=== PATIENT | female | born 1985 | race Caucasian/White ===

== ENCOUNTER 2025-01-10 06:31 | Day surgery (SDC) | payer MEDICAID ==
[2025-01-07 11:52] LABS: Hematocrit 38.4 % (36.0-46.0); Hemoglobin 12.8 g/dL (12.2-16.2); Mean Corpuscular Hemoglobin 28.8 pg (28.0-32.0); Mean Corpuscular Volume 86.2 fL (80.0-100.0); Nucleated Red Blood Cells % 0.0 %
[2025-01-07 12:03] LABS: INR 1.02 (0.9-1.15); Partial Thromboplastin Time 29.0 SEC (24.5-34.5); Prothrombin Time 10.8 sec (9.3-11.8)
[2025-01-07 12:41] LABS: Alanine Aminotransferase 15 U/L (7-40); Albumin 4.4 g/dL (3.2-4.8); Alkaline Phosphatase 76 U/L (46-116); Anion Gap 9 (5-15); BUN/Creatinine Ratio 12.5 (10.0-20.0); Blood Urea Nitrogen 9 mg/dL (9-23); Calcium 9.4 mg/dL (8.7-10.4); Carbon Dioxide 28 mmol/L (20-31); Chloride 104 mmol/L (98-107); Glucose 88 mg/dL (74-106); Potassium 4.2 mmol/L (3.5-5.1); Sodium 141 mmol/L (136-145); Total Protein 7.4 g/dL (5.7-8.2)
[2025-01-07 12:42] LABS: Bilirubin, Total 0.3 mg/dL (0.2-1.0)
[2025-01-07 12:43] LABS: Urine Amorphous Crystal FEW /hpf (None Seen); Urine Protein, UAD Negative (Negative)
--- NOTE | 2025-01-07 16:41 | DVHHP ---
ADMIT DATE: 01/10/2025 CHIEF COMPLAINT: Desires bilateral tubal ligation. HISTORY OF PRESENT ILLNESS: The patient is a 39-year-old 6, para 6, admitted for laparoscopic placement of Filshie clips. The patient does not want any other form of contraception. Risks, complications, alternatives, and failure rate discussed with the patient. Use of Filshie clip discussed with the patient. The patient fully understands. She wishes to proceed with planned procedure. PAST MEDICAL HISTORY: None. PAST SURGICAL HISTORY: None. SOCIAL HISTORY: None. FAMILY HISTORY: None. OBSTETRIC AND GYNECOLOGIC HISTORY: Last Pap 2021, the patient states she will return for the Pap with us after the procedure. She does not want to have it done. Past 6 normal vaginal deliveries. REVIEW OF SYSTEMS: Consistent with HPI. PHYSICAL EXAMINATION: VITAL SIGNS: Stable, afebrile. HEENT: Within normal limits. CARDIOVASCULAR: Regular rate and rhythm. LUNGS: Clear to auscultation. BREASTS: Symmetrical, no masses. ABDOMEN: Soft, nontender. PELVIC: External genitalia within normal limits. Vagina normal. Cervix grossly normal appearing. Uterus 7-week size. Adnexa nonpalpable. EXTREMITIES: No clubbing, cyanosis or edema. IMPRESSION: Multiparity, desires tubal sterilization. PLAN: Laparoscopic placement of Filshie clips. Informed consent obtained. Risks, complications of surgery including infection, bleeding, hematoma formation, injury to bowel or bladder, surrounding organ, possibility of DVT, pulmonary embolism, and risks of anesthesia were discussed with the patient. Options were reviewed. All questions answered. The patient fully understands. She wishes to proceed with planned procedure. Failure rate with tubal sterilization discussed with the patient. DO PRIMITIVO Huber TID: [id number] RECEIPT: [id number]
[~2025-01-10] VITALS: Ht 165.1 cm; Wt 68.0 kg
[~2025-01-10 06:31] MED LIST: ceFAZolin 2 GM/D5W50ml 50 ML IV ONE
[2025-01-10] MEDS ORDERED: LIDOCAINE W/ EPINEPHRINE 1% 20ML VIAL ONE (06:36)
[2025-01-10] MEDS ORDERED: SODIUM CHLORIDE LOCK 10 ML ONE (06:58)
[2025-01-10] MEDS ORDERED: LIDOCAINE HCL 2% TOP JELLY 5ML TOP ONE (06:58)
[2025-01-10] MEDS ORDERED: LIDOCAINE 1% INJ PF 5ML AMP ONE (06:58)
[2025-01-10] MEDS ORDERED: MEPERIDINE HCL (25 MG/ML) 1ML VIAL ONE (06:58)
[2025-01-10] MEDS ORDERED: MIDAZOLAM HCL 2MG/2ML 2ml VIAL (1mg/ml) ONE (06:58)
[2025-01-10] MEDS ORDERED: ROCURONIUM 10MG/ML 10ML VIAL IV ONE (06:58)
[2025-01-10] MEDS ORDERED: fentaNYL CITRATE 100 MCG/2 ML VL ONE (06:58)
[2025-01-10] MEDS ORDERED: KETAMINE 50mg/ML 1ml syringe ONE (06:58)
[2025-01-10] MEDS ORDERED: PROPOFOL 10 MG/ML 20 ML IV ONE (06:58)
[2025-01-10] MEDS ORDERED: MORPHINE SULFATE 4 MG/ML SYR/VIAL IV PRN (07:00)
[2025-01-10] MEDS ORDERED: MORPHINE SULFATE INJ 2 MG/ml SYRG IV PRN (07:00)
[2025-01-10] MEDS ORDERED: HYDROmorphone HCL 2 MG/ML VL/or syr IV PRN ×2 (07:00)
[2025-01-10] MEDS ORDERED: KETOROLAC TROMETH 30 MG/ML 1ML VIAL IV ONE (07:00)
[2025-01-10] MEDS ORDERED: METOCLOPRAMIDE HCL 5MG/ml INJ 2ml VIAL IV PRN (07:00)
[2025-01-10] MEDS: LIDOCAINE 1%HCL (LOCAL ANESTH) 10 ML MDV IJ ONE (07:29)
[2025-01-10] MEDS: BUPIVACAINE HCL 0.25% P/F 10 ML VIAL ONE (07:29)
[2025-01-10] MEDS ORDERED: SUGAMMADEX 200mg/2ml Vial (100MG/ML) IV ONE ×2 (07:30→07:31)
--- NOTE | 2025-01-10 07:41 | DVHOP2 ---
Operative Report DATE OF OPERATION: 01/10/25 PREOPERATIVE DIAGNOSES: 1. Desires elective tubal sterilization. POSTOPERATIVE DIAGNOSES: 1. Desires elective tubal sterilization. SURGEON: Alexandrea Vora D.O./IKER ANESTHESIOLOGIST: ZHANE TYPE OF ANESTHESIA : General. CONSENT: The patient was informed of the risks and benefits of the procedure. The patient was informed of the risks and benefits of the procedure. These include but are not limited to , complications of anesthesia, postoperative infection, incomplete relief of symptoms, recurrence of symptoms, damage to blood vessels, nerves and tendons, deep venous thrombosis, pulmonary embolism and possible need for repeat surgery in the future. FINDINGS: Cervix is grossly normal appearing. Uterus is 10 weeks' size. Adnexa nonpalpable. COMPLICATIONS: None. BLOOD PRODUCTS USED: None. PROCEDURES: Laparoscopic placement of Filschi Clips to bilateral tubes PROCEDURE IN DETAIL: The patient was taken to the operating room where she was placed under general anesthesia. The patient was then prepped and draped in the usual sterile manner in the dorsal lithotomy position. The bladder was emptied using a straight catheter. Examination under anesthesia revealed the above findings. A weighted speculum was placed in the vagina. The anterior lip of the cervix was grasped using single-tooth tenaculum. Cervix was dilated. Uterus sounded to 10 cm. HUMI catheter was placed. Attention was then turned to the abdomen where a Veress needle was introduced. Abdomen was distended with 3L of CO2 gas. Using Visiport, abdomen was entered under direct visualization. Survey of abdominal cavity revealed normal finding. A 8 mm trocar was placed into the suprapubic region. Filshie clip was then loaded on the right tube as well as the left. No bleeding was noted. All the instruments were removed from the abdomen and pelvis. CO2 gas released. Incisional ports were closed using #4-0 Vicryl and princess for the larger port. The patient tolerated the procedure well. All instruments were removed from the patient's cervix. The patient was taken to the recovery room in a stable condition. ESTIMATED BLOOD LOSS: 20 mL Visit Coding OBGYN Date of Service: Jan 10, 2025 Billing Provider: ALEXANDREA VORA DO BUTTONHOLE TACKER Common Visit Codes: 31856-[id number] INP/OBS CARE (HIGH) BUTTONHOLE TACKER Procedure Codes: 94562-AMO.SURG:ON OVIDUCT/OVARY ALEXANDREA VORA DO Jan 10, 2025 07:41
[2025-01-10 07:42] VITALS: PULSE 106; RESP 16; TEMP 97.7; O2SAT 96
--- NOTE | 2025-01-10 07:42 | POSTOP ---
Post-Operative Note Post-Operative Note Preop Diagnosis DESIRES TUBAL LIGATION Postop Diagnosis: SAME Operation performed LAPAROSOCOPIC PLACEMENT OF FILSCHIE CLIPS Specimen NA Anesthesia: General Anesthesiologist: ZHANE Blood Loss(fluid mgmt) 20ML Surgeon Kong Vora Sales Team Member [employer]KER Implant FILSCHIE Complications & Mgmt NONE Date 01/10/25 Time 07:41 Visit Coding OBGYN Date of Service: Jan 10, 2025 Billing Provider: KONG VORA DO SQUEEGEE OPERATOR Common Visit Codes: [id number] INP/OBS CARE (HIGH) SQUEEGEE OPERATOR Procedure Codes: 06689-GRL.SURG:ON OVIDUCT/OVARY KONG VORA DO Jan 10, 2025 07:42
--- NOTE | 2025-01-10 07:44 | DVHDS2 ---
Physician Discharge Progress N Final Diagnosis: S/P TUBAL Operations or Procedures: Operations or Procedures LAPAROSOCOPIC PLACEMENT OF FILSCHIE CLIPS Condition on Discharge: Good Disposition: Home Discharge Instructions: Diet: Regular Activity: Light activity Medications: ZOFRTACHO,NORCO Follow Up Care: Specialist: DAMIAN CEDENO Discharge Statement: "Patient was advised to return to the ER or call 911 if any headaches, dizziness, shortness of breath, chest pain, abdominal pain, bleeding, fevers, or worsening of medical condition. Patient was counseled about treatment plan, medications, possible side effects, patientverbalized understanding. All questions were answered to the best of my ability. This discharge took greater then 30 minutes in planning, reviewing documentation, counseling the patient, and discussing with other team members." Visit Coding OBGYN Date of Service: Jan 10, 2025 Billing Provider: KONG KINCAID DO BUFFET MANAGER Common Visit Codes: [id number] INP/OBS CARE (HIGH) BUFFET MANAGER Procedure Codes: 90234-WYI.SURG:ON OVIDUCT/OVARY KONG KINCAID DO Jan 10, 2025 07:44
[2025-01-10] MEDS ORDERED: LACTATED RINGER'S 1,000 ML IV SCH (07:45)
[2025-01-10] MEDS ORDERED: ONDANSETRON HCL 4 MG/2 ML VIAL IV PRN (07:45)
[2025-01-10] MEDS ORDERED: HYDR-4072 PO (07:47)
[2025-01-10] MEDS ORDERED: ZOFR4T PO (07:47)
[2025-01-10] MEDS ORDERED: IBUP-1456 PO (07:47)
[2025-01-10] MEDS: THROAT LOZENGES(CEPASTAT) MT PRN (08:56)
[2025-01-10 08:57] VITALS: BP 127/74; PULSE 77; RESP 12; O2SAT 98
== END 2025-01-10 09:26 | disposition home or self-care (01) ==
LOC: SUR 06:31
PROVIDERS: ATTEND Obstetrics & Gynecology
DX: Z30.2 Encounter for sterilization (principal); Z79.899 Other long term (current) drug therapy
CPT/HCPCS: 36415; 58671; 80053; 81001; 84702; 85025; 85610; 85730; 86850; 86900; 86901; A4264; J0690; J1100; J2003; J2175; J2250; J2704; J3010; J3490